=== PATIENT | male | born 1940 | race Caucasian/White ===

== ENCOUNTER → 2020-09-21 | Outpatient (CLI) | payer OTHER, SELFPAY ==
[~2020-09-21] MED LIST: ASPIR-LOW81 MG PO; CRESTOR40 MG PO; KLONOPIN0.5 MG PO; LEXAPRO20 MG PO; LISINOPRIL20 MG PO; LOPRESSOR100 MG PO; NEURONTIN 300300 MG PO; NORCO 5-325 TA1 EACH PO; SEROQUEL100 MG PO; TYLENOL 500 MG500 MG PO; Voltaren Gel 1 % TOP
== END ==
LOC: KOH-I 10:10
DX: M51.36 Other intervertebral disc degeneration, lumbar region (principal); M48.07 Spinal stenosis, lumbosacral region
CPT/HCPCS: 72148